=== PATIENT | male | born 1985 | race Caucasian/White ===

== ENCOUNTER 2019-05-24 10:36 | Emergency (ER) | payer OTHER ==
--- NOTE | 2019-05-24 10:54 | ED ---
Lower Extremity - HPI Summary HPI Summary: The patient is a 34 y/o M presenting to [facility] with a chief complaint of sudden onset episodes of left calf tightness occurring in the morning for the last few days. He reports that he had an arthroscopy on the left anterior knee for cartilage regrowth on 05/06/19 in [place], [place] where he lives, and he had a follow- up appointment earlier this week, but he has since been experiencing a constricting sensation in the left calf specifically when he wakes up. The pain is usually relieved with hot showers. Currently, the pain is rated 7/10 in severity. He denies any other symptoms including fevers, shortness of breath, or redness or drainage from the surgical site. He is able to bear weight on the LLE. Recent travel by plane from [place] to [place]. No PMHx. No FHx. Nonsmoker , no EtOH, no substance use. Medications reviewed. Allergies noted. - History of Current Complaint Chief Complaint: EDExtremityLower Stated Complaint: MUSCLE PAIN POST SURGERY PER PT Time Seen by Provider: 05/24/19 10:44 Hx Obtained From: Patient Mechanism Of Injury: Unknown Onset of Pain: Days - 2-3 Onset/Duration: Still Present Severity Initially: Moderate Severity Currently: Moderate Pain Intensity: 7 Pain Scale Used: 0-10 Numeric Timing: Lasting Minutes Location: Is Discrete @ - left calf Character Of Pain: Stiffness - tightness Associated Signs And Symptoms: Negative: Redness, Fever, Other - SOB, erythema or drainage from surgical site Aggravating Factor(s): Nothing Alleviating Factor(s): Other - hot shower Able to Bear Weight: Yes Related History: Other - recently had arthroscopic surgery - Allergies/Home Medications Allergies/Adverse Reactions: Allergies Allergy/AdvReac Type Severity Reaction Status Date / Time Iodine and Iodide Containing Allergy Anaphylatic Verified 05/24/19 10:42 Produc Shock PMH/Surg Hx/FS Hx/Imm Hx Endocrine/Hematology History: Denies: Hx Diabetes Cardiovascular History: Denies: Hx Hypertension Respiratory History: Denies: Hx Asthma Sensory History: Denies: Hx Legally Blind, Hx Deafness Opthamlomology History: Denies: Hx Legally Blind EENT History: Denies: Hx Deafness - Surgical History Surgical History: Yes Surgery Procedure, Year, and Place: cartilage regrowth arthroscope 05/06/19 [place], [place] Infectious Disease History: No Infectious Disease History: Denies: Traveled Outside the [place] in Last 30 Days - Family History Known Family History: Negative: Cardiac Disease, Hypertension, Diabetes - Social History Alcohol Use: None Hx Substance Use: No Substance Use Type: Reports: None Hx Tobacco Use: No Smoking Status (MU): Never Smoked Tobacco Review of Systems Negative: Fever Negative: Shortness Of Breath Positive: Myalgia - left calf, "constricted" Negative: Other - erythema or drainage at surgical site on left knee All Other Systems Reviewed And Are Negative: Yes Physical Exam - Summary Physical Exam Summary: Constitutional: Well-developed, Well-nourished, Alert. (-) Distressed Skin: Warm, Dry HENT: Normocephalic; Atraumatic Eyes: Conjunctiva normal Neck: Musculoskeletal ROM normal neck. (-) JVD, (-) Stridor, (-) Nuchal rigidity Cardio: Rhythm regular, rate normal, Heart sounds normal; Intact distal pulses; Radial pulses are 2+ and symmetric. (-) Murmur Pulmonary/Chest wall: Effort normal. (-) Respiratory distress, (-) Wheezes, (-) Rales Abd: Soft, (-) tenderness, (-) Distension, (-) Guarding, (-) Rebound Musculoskeletal: Well-healing incision to the anterior left knee, (-) Edema Lymph: (-) Cervical adenopathy Neuro: Alert, Oriented x3 Psych: Mood and affect Normal Triage Information Reviewed: Yes Vital Signs On Initial Exam: Initial Vitals Temp Pulse Resp BP Pulse Ox 98.5 F 70 15 135/83 99 05/24/19 10:39 05/24/19 10:39 05/24/19 10:39 05/24/19 10:39 05/24/19 10:39 Vital Signs Reviewed: Yes Procedures - Sedation Patient Received Moderate/Deep Sedation with Procedure: No Diagnostics - Vital Signs Vital Signs Temp Pulse Resp BP Pulse Ox 05/24/19 10:39 98.5 F 70 15 135/83 99 - Laboratory Result Diagrams: 05/24/19 12:26 05/24/19 12:26 Lab Statement: Any lab studies that have been ordered have been reviewed, and results considered in the medical decision making process. - Ultrasound LLE DVT US Ultrasound Interpretation Completed By: Radiologist Summary of Ultrasound Findings: Impression: Occlusive deep venous thrombus within one of the peroneal veins in the calf. ED physician has reviewed this report. Re-Evaluation - Re-Evaluation First Eval Re-Evaluation Time: 12:00 Change: Unchanged Comment: We discussed US results and plan for further treatment. Second Eval Re-Evaluation Time: 12:17 Change: Unchanged Comment: We discussed plan for blood work following US results. We also discussed plan for discharge with Xarelto rx and follow up with his surgeon. Lower Extremity Course/Dx - Course Course Of Treatment: 34 y/o male w L knee arthroscopic surgery 10 days ago p/w calf cramping. -No edema on exam, full ROM knee, incision well healed. Check DVT US - Diagnoses Provider Diagnoses: Deep venous thrombosis (DVT) of left peroneal vein - Physician Notifications Discussed Care Of Patient With: Moe Mota - orthopedics [place] Time Discussed With Above Provider: 12:15 Instructed by Provider To: Other - Dr. Mota, who is the on-call provider where the patient had his surgery, agrees with beginning Xarelto for findings of DVT in the patient post-op. Discharge ED - Sign-Out/Discharge Documenting (check all that apply): Patient Departure - Patient will be discharged home. - Discharge Plan Condition: Stable Disposition: HOME Prescriptions: Rivaroxaban TAB(*) [Xarelto 15 mg(*)] 15 mg PO BID 21 Days #42 tab Patient Education Materials: Deep Vein Thrombosis (ED) Referrals: Care [facility] [Outside] Additional Instructions: You were seen in the emergency department for leg cramping, your ultrasound showed a blood clot in the peroneal vein. Please take Xarelto (a blood thinner) twice a day for 21 days. Follow up with your surgeon. If any studies were not completed at the time of discharge you will be called with the relevant results. Please follow up with your primary care doctor in the next 2-3 days and return to the emergency department for worsening or concerning symptoms. It was a pleasure taking care of you today. - Billing Disposition and Condition Condition: STABLE Disposition: Home - Attestation Statements Document Initiated by Pushpa: Yes Documenting Scribe: Penny Martin Provider For Whom Pushpa is Documenting (Include Credential): MD Pushpa Gamez Attestation: I, Penny Martin, scribed for Dr. Piedad Montoya MD on 05/24/19 at 1350. Scribe Documentation Reviewed: Yes Provider Attestation: The documentation as recorded by the scribe, Penny Martin accurately reflects the service I personally performed and the decisions made by me, Dr. Piedad Montoya MD Status of Scribe Document: Viewed
[2019-05-24 12:37] LABS: ABS Eosinophils 0.2 10^3/ul (0-0.6); ABS Monocytes 0.8 10^3/ul (0-0.8); ABS Neutrophils 6.5 10^3/ul (1.5-7.7); Eosinophil % 2.2 %; Hematocrit 43 % (42-52); Hemoglobin 15.3 g/dL (14.0-18.0); Lymphocyte % 20.6 %; Mean Corpuscular HGB Conc 36 g/dL (31-36); Mean Corpuscular Hemoglobin 31 pg (27-31); Mean Corpuscular Volume 87 fL (80-94); Mean Platelet Volume 8.1 fL (7.4-10.4); Platelet Count 204 10^3/uL (150-450); Red Blood Count 4.91 10^6 /uL (4.18-5.48); Red Cell Distribution Width 13 % (10-15); White Blood Count 9.5 10^3/uL (3.5-10.8)
[2019-05-24 12:42] LABS: INR 1.14 (0.82-1.09)
[2019-05-24 12:56] LABS: EGFR African American 132.8 (>60); EGFR Non-African American 109.7 (>60); Potassium 3.5 mmol/L (3.5-5.0)
[2019-05-24 12:57] LABS: Albumin 4.4 g/dL (3.2-5.2); Albumin/Globulin Ratio 1.8 (1-3); Calcium 9.3 mg/dL (8.6-10.3); Globulin 2.5 g/dL (2-4); Total Bilirubin 0.9 mg/dL (0.2-1.0); Total Protein 6.9 g/dL (6.4-8.9)
[2019-05-24 13:44] VITALS: BP 113/81
== END 2019-05-24 13:32 | disposition home or self-care (01) ==
LOC: ED 10:36
DX: I82.452 Acute embolism and thrombosis of left peroneal vein (principal); Z91.041 Radiographic dye allergy status
CPT/HCPCS: 36415; 80053; 85025; 85610; 99282